=== PATIENT | male | born 1975 | race Caucasian/White ===

== ENCOUNTER 2022-10-13 17:37 | Emergency (ER) | payer MEDICARE, OTHER ==
[~2022-10-13] VITALS: Ht 170.2 cm; Wt 81.6 kg
[2022-10-13] MEDS ORDERED: NAPROSYN500 MG PO (21:43)
== END 2022-10-13 22:30 | disposition home or self-care (01) ==
LOC: FSED 17:43
DX: N50.811 Right testicular pain (principal); N43.3 Hydrocele, unspecified; K08.89 Other specified disorders of teeth and supporting structures; W18.2XXA Fall in (into) shower or empty bathtub, initial encounter; Y93.E1 Activity, personal bathing and showering; Y92.89 Other specified places as the place of occurrence of the external cause; E11.65 Type 2 diabetes mellitus with hyperglycemia; E11.40 Type 2 diabetes mellitus with diabetic neuropathy, unspecified; E78.5 Hyperlipidemia, unspecified; J45.909 Unspecified asthma, uncomplicated; H54.7 Unspecified visual loss
CPT/HCPCS: 76870; 80053; 81003; 85025; 99283